=== PATIENT | male | born 1940 | race Caucasian/White ===

== ENCOUNTER 2016-10-23 11:35 | Observation (INO) | payer OTHER, BC ==
[2016-10-23 11:47] VITALS: BMI 28.8
--- NOTE | 2016-10-23 12:20 | PDOC ---
History of Present Illness - General History Source: Patient Exam Limitations: No Limitations - History of Present Illness Initial Comments: CHIEF COMPLAINT: 76 y/o afebrile male with PMH HTN, HLD, DM, ACS (multiple stents on Plavix), CVA with b/l hemianopia BIB his fiance for confusion and right sided weakness since last night. HISTORY OF PRESENT ILLNESS: According to the patient's fiance, the patient became confused last night, unable to tell her the president's name and "not himself". He was also complaining of right arm and hand tingling. The patient' s fiance states he still isn't acting "normal" although he can now answer questions correctly. He denies fall, head trauma, LOC, fever, ROBERTS, neck pain, changes in vision/hearing, n/v/d, CP, SOB, abd pain, saddle anesthesia, bowel/ bladder incontinence. PCP is Dr. Ritchie Inspection Clerk is Dr. Rogers Vital signs on arrival are within normal limits. REVIEW OF SYSTEMS: GENERAL/CONSTITUTIONAL: No fever/chills. No weakness. No weight change. HEAD, EYES, EARS, NOSE AND THROAT: No change in vision. No ear pain or discharge. No sore throat. CARDIOVASCULAR: No chest pain or shortness of breath. RESPIRATORY: No cough, wheezing, or hemoptysis. GASTROINTESTINAL: No abd pain, nausea, vomiting, diarrhea. GENITOURINARY: No dysuria, frequency, or change in urination. MUSCULOSKELETAL: No joint or muscle swelling or pain. No neck or back pain. SKIN: No rash or easy bruising. NEUROLOGIC: +confusion and tingling of right arm. No headache, vertigo, loss of consciousness. PHYSICAL EXAM: GENERAL: The patient is awake, alert, and fully oriented, in no acute distress. HEAD: Normal with no signs of trauma. ENT: Pupils equal, round and reactive to light, extraocular movements intact, sclera anicteric, conjunctiva clear. LUNGS: Clear to auscultation bilaterally. Normal excursion. No respiratory distress or use of accessory muscles. CV: RRR, S1/S2, no MRG. Cap refill < 2 sec. ABDOMEN: Soft, non-distended, non-tender even to deep palpation, no hepatomegaly or splenomegaly, no masses. EXTREMITIES: Normal range of motion, no edema. NEUROLOGICAL: Somewhat slurred speech. Gait not assessed. CN II-XII grossly intact. No facial droop. Decreased sensation in right UE and LE compared to left. Some drift noted in right LE when lifted. PSYCH: Normal mood, normal affect. SKIN: Warm, dry, normal turgor, no rashes or lesions noted. <Estephania Gallagher - Last Filed: 10/23/16 15:31> <Kassandra Chen - Last Filed: 10/24/16 15:40> - General Chief Complaint: CVA/TIA Stated Complaint: RIGHT SIDE NUMBNESS Time Seen by Provider: 10/23/16 12:01 Past History - Past Medical History Cardiac Disorders: Yes (STENT) - Surgical History Cardiac Surgery: Yes (STENTS) - Psycho/Social/Smoking Cessation Hx Suicidal Ideation: No Smoking History: Former smoker Have you smoked in the past 12 months: No Information on smoking cessation initiated: No Hx Alcohol Use: No Drug/Substance Use Hx: No <Estephania Gallagher - Last Filed: 10/23/16 15:31> <Kassandra Chen - Last Filed: 10/24/16 15:40> - Past Medical History Allergies/Adverse Reactions: Allergies Allergy/AdvReac Type Severity Reaction Status Date / Time No Known Allergies Allergy Verified 10/23/16 11:47 Home Medications: Ambulatory Orders Amlodipine Besylate [Norvasc -] 10 mg PO DAILY 10/23/16 Atorvastatin Ca [Lipitor] 80 mg PO DAILY 10/23/16 Clopidogrel Bisulfate [Plavix -] 75 mg PO DAILY 10/23/16 Glipizide Xl [Glucotrol Xl -] 5 mg PO DAILY 10/23/16 Isosorbide Mononitrate [Imdur -] 60 mg PO DAILY 10/23/16 Linagliptin [Tradjenta] 5 mg PO DAILY 10/23/16 Metoprolol Tartrate [Lopressor -] 50 mg PO BID 10/23/16 Ramipril 10 mg PO BID 10/23/16 *Physical Exam - Vital Signs Last Vital Signs Temp Pulse Resp BP Pulse Ox 97.6 F 66 18 159/80 98 10/23/16 11:43 10/23/16 11:43 10/23/16 11:43 10/23/16 11:43 10/23/16 11:43 <Francis Gallagheree - Last Filed: 10/23/16 15:31> - Vital Signs Last Vital Signs Temp Pulse Resp BP Pulse Ox 97.8 F 64 18 134/89 97 10/23/16 16:01 10/23/16 16:01 10/23/16 16:01 10/23/16 16:01 10/23/16 16:01 <Kassandra Chen - Last Filed: 10/24/16 15:40> NIH Stroke Scale - Last Known Well Date/Time & Onset Date Last Known Well: 10/22/16 Time Last Known Well: 19:30 - Initial Evaluation Level of consciousness: Alert Ask patient the month and their age: Answers one correctly Ask patient to open & close eyes; make fist and let go: Obeys both correctly Best gaze (horizontal eye movement): Normal Visual field testing: Bilateral hemianopia (blind including cortical blindness) (this is an old symptom from prior CVA) Facial paresis (Show teeth/raise eyebrows/close eyes tight): Normal symmetrical movement Motor Function: Left Arm: Normal Motor Function: Right Arm: Normal (extends arm 90 (or 45) degrees for 10 seconds without drift Motor Function: Left Leg: Normal (extends leg 30 degrees for 5 seconds without drift) Motor Function: Right Leg: Drift Limb Ataxia: No ataxia Sensory(Use pinprick test arms,legs,trunk,face/side to side): Mild to moderate decrease in sensation Best language (Describe picture, name items, read sentences): No Aphasia Dysarthria (read several words): Mild to moderate slurring of words Extinction and Inattention: No abnormality - Total Score NIH Stroke Scale Score: 7 <Estephania Gallagher - Last Filed: 10/23/16 15:31> Heart Score/ECG Review - ECG Intrepretation Comment:: Twelve-lead EKG was performed and reviewed by Dr. Chen. There is normal sinus rhythm with a normal rate. The axis is normal. The intervals are normal. Nonspecific T wave abnormality. Impression: Abnormal twelve-lead EKG <Estephania Gallagher - Last Filed: 10/23/16 15:31> Critical Care Time/MDM Note - Medical Decision Making Note: A/P: 76 y/o afebrile male with possible TIA/CVA with symptoms started last night, approximately 17 hours ago. Plan is as follows: 1. EKG 2. Labs 3. Head CT 4. CXR CXR IMPRESSION: Linear densities at the lung bases which may reflect atelectasis, however, cannot exclude infiltrates. head CT IMPRESSION: Right posterior cerebral artery territory encephalomalacia/old infarct. No CT evidence of gross acute infarct is identified. Pt with ARF. Still not acting normally according to fiance. Will admit to obs for neuro work up to Dr. Foy who agrees. Spoke with Dr. Richey for consult. <Estephania Gallagher - Last Filed: 10/23/16 15:31> Discharge Disposition - Discharge Dispostion Admit: Yes <Estephania Gallagher - Last Filed: 10/23/16 15:31> - Transfer to Acute Care Facility Transfer comment: I reviewed the case with the mid-level practitioner and agree with the mid- level practitioner's assessment, diagnosis and disposition. <Kassandra Chen - Last Filed: 10/24/16 15:40> - Diagnosis Numbness on right side Acute renal failure Qualifiers: Acute renal failure type: unspecified Qualified Code(s): N17.9 - Acute kidney failure, unspecified CVA (cerebral vascular accident) Qualifiers: CVA mechanism: unspecified Qualified Code(s): I63.9 - Cerebral infarction, unspecified - Discharge Dispostion Disposition: AGAINST MEDICAL ADVICE Condition at time of disposition: Stable
[2016-10-23 12:31] LABS: BASOPHIL 0.8 % (0-2.0); EOSINOPHIL 3.9 % (0-4.5); MCH 28.7 pg (25.7-33.7); MCHC 33.8 g/dl (32.0-35.9); MEAN CELL VOLUME 84.9 fl (80-96); MEAN PLT VOLUME 9.5 fl (7.5-11.1); NEUTROPHILS 73.5 % (42.8-82.8); PLATELET COUNT 99 K/MM3 (134-434); RDW 13.1 % (11.9-15.9); WHITE BLOOD COUNT 7.1 K/mm3 (4.0-10.0)
[2016-10-23 12:55] LABS: ALBUMIN 3.2 g/dl (3.4-5.0); BILIRUBIN,TOTAL 0.7 mg/dL (0.2-1.0); CALCIUM 8.3 mg/dL (8.5-10.1); COCKROFT - GAULT 23.7; CREATININE 2.9 mg/dL (0.7-1.3); TOT PROT 6.1 g/dl (6.4-8.2)
[2016-10-23 12:57] LABS: TROPONIN I 0.03 ng/ml (0.00-0.05)
[2016-10-23 13:02] LABS: INR 1.06 (0.82-1.09); PROTHROMBIN TIME (PATIENT) 11.7 SEC (9.98-11.88)
[2016-10-23] MEDS ORDERED: SODIUM CHLORIDE 1,000 ML IV STA (14:00)
[2016-10-23] MEDS ORDERED: ONDANSETRON 4 MG/2 ML VIAL IVPB PRN (14:53)
--- NOTE | 2016-10-23 14:59 | HP ---
CHIEF COMPLAINT: Confusion PCP: Dr. Ritchie (DOCS) Field Marketing Lead: Dr. Rogers HISTORY OF PRESENT ILLNESS: This is a 76 year old male with a history of HTN, HLD, NIDDM, CAD s/p stents x 5 (last 2015), and multiple CVAs with residual bilateral hemianopia brought in by his for evaluation of confusion which began yesterday. He was in his usual state of health until yesterday afternoon, when he seemed forgetful about simple things. Later that night, he was surprised to hear his speaking about a friend of theirs being , although she last year. She asked him who the president was and he was unable to answer. He slept through the night, and today seemed back to himself, but complained of right hand numbness. ER course was notable for: (1) EKG: NSR at 66bpm, lateral TWI/flattening (2) Head CT: Old right CASE ASSISTANT territory infarct, chronic microvascular ischemic changes (3) Cr 2.9 - no prior available for comparison, but no history of renal insufficiency per patient Recent Travel: None PAST SURGICAL HISTORY: Right inguinal hernia repair Social History: Lives with , works as infrastructure architect. Smoking: Quit about 5 years ago. Alcohol: None. Family History: Mother CHF, father CAD, 2 brothers CAD. Allergies No Known Allergies Allergy (Verified 10/23/16 11:47) HOME MEDICATIONS: Home Medications Medication Instructions Recorded Amlodipine Besylate [Norvasc -] 10 mg PO DAILY 10/23/16 Atorvastatin Ca [Lipitor] 80 mg PO DAILY 10/23/16 Clopidogrel Bisulfate [Plavix -] 75 mg PO DAILY 10/23/16 Glipizide Xl [Glucotrol Xl -] 5 mg PO DAILY 10/23/16 Isosorbide Mononitrate [Imdur -] 60 mg PO DAILY 10/23/16 Linagliptin [Tradjenta] 5 mg PO DAILY 10/23/16 Metoprolol Tartrate [Lopressor -] 50 mg PO BID 10/23/16 Ramipril 10 mg PO BID 10/23/16 REVIEW OF SYSTEMS CONSTITUTIONAL: Absent: fever, chills, diaphoresis, generalized weakness, malaise, loss of appetite, weight change HEENT: Absent: rhinorrhea, nasal congestion, throat pain, throat swelling, difficulty swallowing, mouth swelling, ear pain, eye pain, visual changes CARDIOVASCULAR: Absent: chest pain, syncope, palpitations, irregular heart rate, lightheadedness , peripheral edema RESPIRATORY: Absent: cough, shortness of breath, dyspnea with exertion, orthopnea, wheezing, stridor, hemoptysis GASTROINTESTINAL: Absent: abdominal pain, abdominal distension, nausea, vomiting, diarrhea, constipation, melena, hematochezia GENITOURINARY: Absent: dysuria, frequency, urgency, hesitancy, hematuria, flank pain, genital pain MUSCULOSKELETAL: Absent: myalgia, arthralgia, joint swelling, back pain, neck pain SKIN: Absent: rash, itching, pallor HEMATOLOGIC/IMMUNOLOGIC: Absent: easy bleeding, easy bruising, lymphadenopathy, frequent infections ENDOCRINE: Absent: unexplained weight gain, unexplained weight loss, heat intolerance, cold intolerance NEUROLOGIC: See HPI PSYCHIATRIC: Absent: Increased stress related to work, selling house PHYSICAL EXAMINATION Vital Signs - 24 hr 10/23/16 11:43 Temperature 97.6 F Pulse Rate 66 Respiratory 18 Rate Blood Pressure 159/80 O2 Sat by Pulse 98 Oximetry (%) GENERAL: Awake, alert, and fully oriented, in no acute distress. HEAD: Normal with no signs of trauma. EYES: Pupils equal, round and reactive to light, extraocular movements intact, sclera anicteric, conjunctiva clear. No lid lag. EARS, NOSE, THROAT: Ears normal, nares patent, oropharynx clear without exudates. Moist mucous membranes. NECK: Normal range of motion, supple without lymphadenopathy, JVD, or masses. LUNGS: Breath sounds equal, clear to auscultation bilaterally. No wheezes, and no crackles. No accessory muscle use. HEART: Regular rate and rhythm, normal S1 and S2 without murmur, rub or gallop. ABDOMEN: Soft, nontender, not distended, normoactive bowel sounds, no guarding, no rebound, no masses. No hepatomegaly or splenomegaly. MUSCULOSKELETAL: Normal range of motion at all joints. No bony deformities or tenderness. No CVA tenderness. UPPER EXTREMITIES: 2+ pulses, warm, well-perfused. No cyanosis. No clubbing. No peripheral edema. LOWER EXTREMITIES: 2+ pulses, warm, well-perfused. No calf tenderness. No peripheral edema. NEUROLOGICAL: MMSE: 21. NIHSS: 4. PSYCHIATRIC: Cooperative. Good eye contact. Appropriate mood and affect. SKIN: Warm, dry, normal turgor, no rashes or lesions noted, normal capillary refill. Laboratory Results - last 24 hr 10/23/16 10/23/16 10/23/16 12:20 12:20 12:20 WBC 7.1 RBC 4.31 Hgb 12.4 Hct 36.6 MCV 84.9 MCHC 33.8 RDW 13.1 Plt Count 99 L MPV 9.5 Neutrophils % 73.5 Lymphocytes % 15.3 Monocytes % 6.5 Eosinophils % 3.9 Basophils % 0.8 INR 1.06 Sodium 143 Potassium 4.0 Chloride 107 Carbon Dioxide 29 Anion Gap 7 L BUN 30 H Creatinine 2.9 H Creat Clearance w eGFR 21.15 Random Glucose 142 H Calcium 8.3 L Total Bilirubin 0.7 AST 14 L ALT 23 Alkaline Phosphatase 94 Creatine Kinase 96 Troponin I 0.03 Total Protein 6.1 L Albumin 3.2 L ASSESSMENT/PLAN: 76 year old male with change in mental status and right hand numbness. Problem List - Problem (1) CVA (cerebral vascular accident) Assessment/Plan: -Suspected -Monitor on telemetry -Serial troponins to rule out GA -Continue ASA, Plavix -MRI brain -Carotid doppler u/s -Echocardiogram -Speech/swallow evaluation completed at bedside- patient able to swallow -Physical therapy evaluation -Neurology consultation Code(s): I63.9 - CEREBRAL INFARCTION, UNSPECIFIED Qualifiers: CVA mechanism: unspecified Qualified Code(s): I63.9 - Cerebral infarction, unspecified (2) Acute kidney injury Assessment/Plan: -No prior Cr available, but no history of renal insufficiency per patient, who has medical records with him -Hold ramipril -Renal u/s -Send UA -Follow Code(s): N17.9 - ACUTE KIDNEY FAILURE, UNSPECIFIED (3) Hypertension Assessment/Plan: -Continue metoprolol, amlodipine -Hold ramipril given DOV Code(s): I10 - ESSENTIAL (PRIMARY) HYPERTENSION (4) CAD (coronary artery disease) Assessment/Plan: -Trend troponins -Continue Imdur, ASA, statin, BB Code(s): I25.10 - ATHSCL HEART DISEASE OF [place] CORONARY ARTERY W/O ANG PCTRS (5) HLD (hyperlipidemia) Assessment/Plan: -Continue Atorvastatin -Cardiac diet Code(s): E78.5 - HYPERLIPIDEMIA, UNSPECIFIED (6) Diabetes Assessment/Plan: -Hold oral hypoglycemics while inpatient -FSACHS -ISS -Diabetic diet Code(s): E11.9 - TYPE 2 DIABETES MELLITUS WITHOUT COMPLICATIONS (7) Thrombocytopenia Assessment/Plan: -No active bleeding or planned procedures -Follow Code(s): D69.6 - THROMBOCYTOPENIA, UNSPECIFIED (8) DVT prophylaxis Assessment/Plan: -Lovenox 30mg sq daily adjusted for CrCl 24 Code(s): [id number] - Visit type - Emergency Visit Emergency Visit: Yes ED Registration Date: 10/23/16 Care time: The patient presented to the Emergency Department on the above date and was hospitalized for further evaluation of their emergent condition. - New Patient This patient is new to me today: Yes Date on this admission: 10/24/16 - Critical Care Critical Care patient: No NIH Stroke Scale - Last Known Well Date/Time & Onset Date Last Known Well: 10/22/16 - Initial Evaluation Level of consciousness: Alert Ask patient the month and their age: Answers one correctly Ask patient to open & close eyes; make fist and let go: Obeys both correctly Best gaze (horizontal eye movement): Normal Visual field testing: Bilateral hemianopia (blind including cortical blindness) Facial paresis (Show teeth/raise eyebrows/close eyes tight): Normal symmetrical movement Motor Function: Left Arm: Normal Motor Function: Right Arm: Normal (extends arm 90 (or 45) degrees for 10 seconds without drift Motor Function: Left Leg: Normal (extends leg 30 degrees for 5 seconds without drift) Motor Function: Right Leg: Normal (extends leg 30 degrees for 5 seconds without drift) Limb Ataxia: No ataxia Sensory(Use pinprick test arms,legs,trunk,face/side to side): Normal Best language (Describe picture, name items, read sentences): No Aphasia Dysarthria (read several words): Normal articulation Extinction and Inattention: No abnormality - Total Score NIH Stroke Scale Score: 4
[2016-10-23] MEDS ORDERED: ASPIRIN 81 MG CHEWABLE TABLETS PO SCH (15:30)
[2016-10-23 16:03] VITALS: BP 134/89; PULSE 64; TEMP 97.8
[2016-10-23] MEDS ORDERED: ASPIRIN 81 MG CHEWABLE TABLETS ONE (16:03)
[2016-10-23] MEDS ORDERED: INSULIN SLIDING SCALE (NOVOLOG) 1 VIAL SQ SCH (16:30)
[2016-10-23 18:30] LABS: TROPONIN I 0.03 ng/ml (0.00-0.05)
[2016-10-23] MEDS ORDERED: LORAZEPAM CARPU-JECT 2 MG/ML DISP.SYRIN IVPUSH ONE (18:32)
[2016-10-23] MEDS ORDERED: LORazepam 2 MG/ML SDV VIAL ONE (18:35)
[2016-10-23] MEDS ORDERED: METOPROLOL TARTRATE 50 MG TABLET (FP) PO SCH (22:00)
[2016-10-23] MEDS ORDERED: RAMIPRIL 5 MG CAPSULE (FP) PO SCH (22:00)
[2016-10-23] MEDS ORDERED: PATIENT'S OWN MEDICATION (NON-FORMULARY) (Ramipril [Ramipril] 10 MG) PO SCH (22:00)
[2016-10-24] MEDS ORDERED: ISOSORBIDE MONONITRATE 60 MG TAB.SR.24H (FP) PO SCH (10:00)
[2016-10-24] MEDS ORDERED: CLOPIDOGREL BISULFATE 75 MG TABLET (FP) PO SCH (10:00)
[2016-10-24] MEDS ORDERED: amLODIPine BESYLATE 10 MG TABLET (FP) PO SCH (10:00)
[2016-10-24] MEDS ORDERED: ATORVASTATIN CA 80 MG TABLET (FP) PO SCH (10:00)
[2016-10-24] MEDS ORDERED: ENOXAPARIN NA (PORCINE) 40 MG/0.4 ML DISP.SYRIN SQ SCH ×3 (10:00)
--- NOTE | 2016-10-25 16:29 | EKG ---
Test Reason : Blood Pressure : / mmHG Vent. Rate : 066 BPM Atrial Rate : 066 BPM P-R Int : 172 ms QRS Dur : 102 ms QT Int : 422 ms P-R-T Axes : 034 -59 068 degrees QTc Int : 442 ms NORMAL SINUS RHYTHM LEFT ANTERIOR FASCICULAR BLOCK NONSPECIFIC T WAVE ABNORMALITY ABNORMAL ECG WHEN COMPARED WITH ECG OF 17-JAN-2007 14:36, LEFT ANTERIOR FASCICULAR BLOCK IS NOW PRESENT NONSPECIFIC T WAVE ABNORMALITY, WORSE IN LATERAL LEADS Confirmed by TASHA CROWLEY MD ([id number]) on 10/25/2016 4:29:41 PM Referred By: Confirmed By:TASHA CROWLEY MD
--- NOTE | 2016-10-31 07:28 | PN ---
Progress Note (short form) - Note Progress Note: call by nurse due to patient wanting to leave AMA. Patient refused to stay for further imaging regarding work up for stroke. Discussed risks of leaving including including possible secondary stroke, myocardial event, or even .
== END 2016-10-23 20:00 | disposition left against medical advice (07) ==
LOC: JER 11:35 → JERBED 14:49 → J4S 19:45
PROVIDERS: ADMIT Internal Medicine; ATTEND Nurse Practitioner Family
PROC: 3E0337Z Introduction of Electrolytic and Water Balance Substance into Peripheral Vein, Percutaneous Approach (ICD-10-PCS; principal; 2016-10-23)
DX: I63.9 Cerebral infarction, unspecified (principal); N17.9 Acute kidney failure, unspecified; I10 Essential (primary) hypertension; I25.10 Atherosclerotic heart disease of native coronary artery without angina pectoris; E78.5 Hyperlipidemia, unspecified; E11.9 Type 2 diabetes mellitus without complications; D69.6 Thrombocytopenia, unspecified; Z95.5 Presence of coronary angioplasty implant and graft; Z79.01 Long term (current) use of anticoagulants; Z87.891 Personal history of nicotine dependence; Z79.84 Long term (current) use of oral hypoglycemic drugs
CPT/HCPCS: 36415; 70450-TC; 70551-TC; 71010-TC; 80053; 82550; 84484; 85025; 85610; 93005; 93010; 93306-TC; 99285-25; G0378

== ENCOUNTER 2021-03-22 14:55 | Emergency (ER) | payer BC, OTHER ==
[2021-03-22 16:07] VITALS: BP 160/87; PULSE 101; TEMP 97.5; BMI 24.6
[2021-03-22 17:01] LABS: INR 0.96 (0.83-1.09); PROTHROMBIN TIME (PATIENT) 11.2 SEC (9.7-13.0)
[2021-03-22 17:04] LABS: ACTIVATED PTT 25.9 SECONDS (25.2-36.5)
[2021-03-22 17:06] LABS: BASO % 0.6 % (0-2.0); EOS % 2.4 % (0-4.5); HEMATOCRIT 31.6 % (35.4-49); HEMOGLOBIN 10.8 GM/dL (11.7-16.9); LYMPH % 16.5 % (8-40); MCH 31.2 pg (25.7-33.7); MCHC 34.1 g/dl (32.0-35.9); MEAN CELL VOLUME 91.4 fl (80-96); MEAN PLT VOLUME 9.7 fl (7.5-11.1); MONO % 6.5 % (3.8-10.2); PLATELET COUNT 112 10^3/uL (134-434); RBC 3.45 M/mm3 (4.00-5.60); RDW 12.8 % (11.9-15.9); WHITE BLOOD COUNT 5.9 K/mm3 (4.0-10.0)
[2021-03-22 17:18] LABS: CHLORIDE 103 mmol/L (98-107); SODIUM 137 mmol/L (136-145)
[2021-03-22 17:21] LABS: ALBUMIN 3.6 g/dl (3.4-5.0); ANION GAP 9 MMOL/L (8-16); BLOOD UREA NITROGEN 16.1 mg/dL (7-18); CALCIUM 8.7 mg/dL (8.5-10.1); CO2 25 mmol/L (21-32); GLUCOSE,RANDOM 134 mg/dL (74-106)
[2021-03-22 17:24] LABS: PHOSPHOROUS 1.6 mg/dL (2.5-4.9); SGPT/ALT 29 U/L (13-61)
[2021-03-22 17:26] LABS: BILIRUBIN,TOTAL 0.7 mg/dL (0.2-1); CREATININE 4.2 mg/dL (0.55-1.3); SGOT/AST 27 U/L (15-37); TOT PROT 7.3 g/dl (6.4-8.2)
[2021-03-22 17:27] LABS: ALK PHOS 60 U/L (45-117)
== END 2021-03-22 17:23 | disposition left against medical advice (07) ==
LOC: JER 14:55
DX: R07.9 Chest pain, unspecified (principal)
CPT/HCPCS: 36415; 71045-TC-FY; 80053; 82550; 82962; 83735; 84100; 84484; 85025; 85610; 85730; 86850; 86900; 86901; 93005; 93010; 93308; 99285-25; C9803; U0003; U0005